=== PATIENT | male | born 1995 | race African-American/Black ===

== ENCOUNTER 2022-04-03 13:13 | Emergency (ER) | payer OTHER ==
[~2022-04-03] VITALS: Ht 175.3 cm; Wt 73.9 kg
[~2022-04-03 13:13] MED LIST: ACETAMINOPHEN-1 EAC1 PO; NAPROXEN500 MG PO
== END 2022-04-03 17:47 | disposition home or self-care (01) ==
LOC: ED 13:13
DX: S00.12XA Contusion of left eyelid and periocular area, initial encounter (principal); I10 Essential (primary) hypertension; W22.8XXA Striking against or struck by other objects, initial encounter
CPT/HCPCS: 99283